=== PATIENT | female | born 1945 | race Caucasian/White ===

== ENCOUNTER 2016-03-12 06:04 | Inpatient (IN) | payer OTHER, MEDICARE ==
[2016-03-12] MEDS ORDERED: NS 500 ML IV ONE (06:15)
[2016-03-12] MEDS ORDERED: NS 1,000 ML IV ONE ×2 (06:23→06:25)
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
--- NOTE | 2016-03-12 06:26 | CPEKG ---
Heart Rate: 98 RR Interval: 612 P-R Interval: 184 QRSD Interval: 96 QT Interval: 380 QTC Interval: 486 P [employer]: -74 QRS [employer]: -20 T Wave [employer]: 19 EKG Severity - ABNORMAL ECG - EKG Impression: Poor R-wave progression EKG Impression: SINUS OR ECTOPIC ATRIAL RHYTHM EKG Impression: BORDERLINE LEFT AXIS DEVIATION EKG Impression: BORDERLINE PROLONGED QT INTERVAL Electronically Signed By: Magalys Rojas 13-Mar-2016 14:12:01
[2016-03-12] MEDS ORDERED: PIPERACILLIN/TAZO 4.5 GM/DEX 100 ML IV ONE (06:31)
[2016-03-12] MEDS ORDERED: VANCOMYCIN HCL/NORMAL SALINE 250 ML IV ONE (06:31)
[2016-03-12 06:35] LABS: % IMMATURE GRANULYOCYTES 1.2 % (0.0-1.1); ABSOLUTE IMMATURE GRANULOCYTES 0.21 10^3/uL (0.00-0.10); ADD DIFF? NO; ADD MORPH? NO; ADD SCAN? YES; ATYPICAL LYMPHOCYTE FLAG 0 (0-99); FRAGMENT RBC FLAG 0 (0-99); HEMATOCRIT 33.6 % (38.0-47.0); HEMOGLOBIN 10.2 g/dL (12.6-16.3); LIPEMIA HEMOLYSIS FLAG 80 (0-99); MEAN CELL HEMOGLOBIN 25.4 pg (27.9-34.1); MEAN CELL HEMOGLOBIN CONCENTR. 30.4 g/dL (32.4-36.7); MEAN CELL VOLUME 83.8 fL (81.5-99.8); MEAN PLATELET VOLUME 9.9 fL (8.7-11.7); PLATELET CLUMPS FLAG 10 (0-99); PLATELET COUNT 197 10^3/uL (150-400); RED BLOOD CELL COUNT 4.01 10^6/uL (4.18-5.33); RED CELL DISTRIBUTION WIDTH 18.1 % (11.5-15.2)
[2016-03-12 06:42] LABS: LEFT SHIFT FLG 250 (0-99)
[2016-03-12 06:55] LABS: APTT 37.7 SEC (23.0-38.0); INR 1.68 (0.83-1.16); PROTIME(PATIENT) 19.8 SEC (12.0-15.0)
[2016-03-12] MEDS ORDERED: ACETAMINOPHEN 500 MG TAB ONE (06:56)
[2016-03-12] MEDS ORDERED: ACETAMINOPHEN 500 MG TAB PO ONE (07:00)
[2016-03-12 07:02] LABS: ALANINE AMINOTRANSFERASE 41 IU/L (9-52); ALBUMIN 3.6 g/dL (3.5-5.0); ALKALINE PHOSPHATASE 207 IU/L (38-126); ANION GAP 14 mEq/L (8-16); ASPARTATE AMINOTRANSFERASE 36 IU/L (14-46); BILIRUBIN,TOTAL 1.3 mg/dL (0.1-1.4); BILIRUBIN-CONJUGATED 0.4 mg/dL (0.0-0.5); BILIRUBIN-UNCONJUGATED 0.9 mg/dL (0.0-1.1); CALCIUM 9.5 mg/dL (8.5-10.4); CARBON DIOXIDE 25 mEq/l (22-31); CHLORIDE 101 mEq/L (97-110); CREATININE 0.9 mg/dL (0.6-1.0); GLOMERULAR FILTRATION RATE > 60; GLUCOSE 101 mg/dL (70-100); MAGNESIUM 1.7 mg/dL (1.6-2.3); POTASSIUM 3.9 mEq/L (3.5-5.2); SODIUM 140 mEq/L (134-144); TOTAL PROTEIN 8.9 g/dL (6.3-8.2)
[2016-03-12] MEDS ORDERED: ONDANSETRON 4 MG/2 ML VIAL IVP PRN (07:10)
[2016-03-12] MEDS ORDERED: ONDANSETRON DISINTEGRATING 4 MG TAB PO PRN (07:10)
[2016-03-12 07:13] LABS: CREATINE KINASE-MB FRACTION 1.15 ng/mL (0-3.19); TROPONIN I < 0.012 ng/mL (0-0.034)
[2016-03-12 07:15] LABS: SCAN POSITIVE
[2016-03-12] MEDS ORDERED: hydrOXYzine HCL 25 MG TAB PO PRN (07:16)
--- NOTE | 2016-03-12 07:17 | DX ---
Left Humerus, 2 Views Clinical Indications: Severe pain Findings: There is faint soft tissue calcification lateral to the acromium, just above the humeral he ad, consistent with calcific tendinopathy. No fracture, dislocation, erosion, bone lysis or sclerosis or periosteal reaction. Impression: Calcific tendinopathy vs calcified subdeltoid bursitis of the rotator cuff.
--- NOTE | 2016-03-12 07:20 | DX ---
Portable Chest, 6:39 a.m. Clinical Indications: Left-sided chest pain, severe Comparison: February 15, 2016 Findings: There is chronic elevation of the right hemidiaphragm. It is difficult to mapping engineer heart size however the pulmonary vascularity is again plethoric. The costophrenic gutters remain sharp. There i s no focal consolidation. There is no left pneumothorax or obvious rib abnormality. A severe thoracic lumbar scoliosis and upper abdominal surgical clips remain. Impression: Little if any change x 1 month. Is the right hemidiaphragm paralyzed?
[2016-03-12 07:23] LABS: HYPOCHROMIA 1+; PLATELET ESTIMATE ADEQUATE (ADEQ); TOXIC VACUOLIZATION PRESENT
[2016-03-12] MEDS ORDERED: KETOROLAC 15 MG/1 ML SDV IVP ONE (07:56)
[2016-03-12] MEDS ORDERED: KETOROLAC 15 MG/1 ML SDV ONE (08:02)
[2016-03-12 08:05] LABS: COLOR AMBER; LEUKOCYTE ESTERASE,URINE TRACE (NEGATIVE); NITRITE,URINE NEGATIVE (NEGATIVE)
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
[2016-03-12 08:22] LABS: MUCUS TRACE /lpf (NONE-1+)
[2016-03-12] MEDS: IBUPROFEN 600 MG TAB PO PRN (09:42)
[2016-03-12] MEDS ORDERED: hydrOXYzine HCL 10 MG TAB PO PRN (10:25)
[2016-03-12] MEDS: ENOXAPARIN 40 MG/0.4 ML SYR SC SCH (11:31)
[2016-03-12] MEDS: PIPERACILLIN/TAZO 2.25 GM/DEX 50 ML IV SCH ×3 (12:00→23:51)
--- NOTE | 2016-03-12 16:40 | HOSPPROG ---
Hospitalist Progress Note Assessment/Plan: This 70-year-old female with history of T12 paraplegia and recent group a strep bacteremia new to my care today presenting with # sepsis # improving left upper arm pain # bilateral lower extremity wound infections # depression # hypotension # history of neurogenic bladder # suspected neurogenic excoriation plan: - Continue empiric vancomycin and Zosyn - will continue to monitor left upper extremity pain and consider MRI if pain is worsening or if we think it could be a source of infection - follow up blood cultures - will increase Vistaril to 25 mg four times daily - continue wound care Subjective: left arm pain is improving. no other new complaints Objective: Vital Signs Temp Pulse Resp BP Pulse Ox 36.7 C 101 H 21 H 107/47 L 97 03/12/16 12:00 03/12/16 15:57 03/12/16 15:57 03/12/16 15:57 03/12/16 15:57 Laboratory Results 03/12/16 Unknown 03/12/16 Unknown 03/11/16 03/12/16 03/13/16 05:59 05:59 05:59 Intake Total 2470 Output Total 260 Balance 2210 PT 19.8 SEC (12.0-15.0) H 03/12/16 Unknown INR 1.68 (0.83-1.16) H 03/12/16 Unknown - Physical Exam Constitutional: no apparent distress, appears nourished, not in pain Ears, Nose, Mouth, Throat: moist mucous membranes, hearing normal, ears appear normal, no oral mucosal ulcers Cardiovascular: regular rate and rhythym, no murmur, rub, or gallop Skin: other ( excoriations on face) ICD10 Worksheet Patient Problems: Problems Problem Status Diagnosed Bacteremia Acute Hypoxia Acute Sepsis Acute Sepsis affecting skin Acute Urinary tract infection Acute Wound infection Acute Wounds and injuries Acute Bilateral leg ulcer Acute
[2016-03-12] MEDS: ACETAMINOPHEN 325 MG TAB PO PRN ×2 (17:17→21:15)
[2016-03-12] MEDS: KETOROLAC 15 MG/1 ML SDV IVP PRN (19:35)
[2016-03-12] MEDS: VANCOMYCIN HCL/NORMAL SALINE 250 ML IV SCH (20:41)
[2016-03-12] MEDS: hydrOXYzine HCL 25 MG TAB PO PRN ×2 (20:41→23:40)
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
[2016-03-13] MEDS: KETOROLAC 15 MG/1 ML SDV IVP PRN ×3 (04:00→19:37)
[2016-03-13] MEDS: hydrOXYzine HCL 25 MG TAB PO PRN ×2 (04:00→15:06)
[2016-03-13 04:25] LABS: HEMATOCRIT 32.7 % (38.0-47.0); HEMOGLOBIN 9.5 g/dL (12.6-16.3); MEAN CELL HEMOGLOBIN 25.1 pg (27.9-34.1); MEAN CELL HEMOGLOBIN CONCENTR. 29.1 g/dL (32.4-36.7); MEAN CELL VOLUME 86.5 fL (81.5-99.8); RED BLOOD CELL COUNT 3.78 10^6/uL (4.18-5.33); RED CELL DISTRIBUTION WIDTH 17.9 % (11.5-15.2)
[2016-03-13 04:35] LABS: ANION GAP 11 mEq/L (8-16); CALCIUM 8.9 mg/dL (8.5-10.4); CARBON DIOXIDE 25 mEq/l (22-31); CHLORIDE 104 mEq/L (97-110); CREATININE 0.9 mg/dL (0.6-1.0); GLOMERULAR FILTRATION RATE > 60; GLUCOSE 88 mg/dL (70-100); POTASSIUM 4.1 mEq/L (3.5-5.2); SODIUM 140 mEq/L (134-144)
[2016-03-13] MEDS: PIPERACILLIN/TAZO 2.25 GM/DEX 50 ML IV SCH (06:27)
[2016-03-13] MEDS: VANCOMYCIN HCL/NORMAL SALINE 250 ML IV SCH ×2 (07:24→19:06)
[2016-03-13] MEDS: ENOXAPARIN 40 MG/0.4 ML SYR SC SCH (09:34)
[2016-03-13] MEDS: FLUoxetine 20 MG CAP PO SCH (09:34)
--- NOTE | 2016-03-13 09:45 | PDINTPN ---
Nut Process Helper Progress Note Assessment/Plan: Assessment: * Cellulitis * Sepsis-resolved * HTN * Paraplegia * Depression * Neurogenic bladder Plan: Continue abx per ID Okay for floor Pain control VTE proph 03/13/16 09:46 Subjective: Awake and alert. C/O neck pain Objective: Vital Signs Temp Pulse Resp BP Pulse Ox 36.7 C 85 20 131/53 H 96 03/13/16 00:00 03/13/16 04:00 03/13/16 04:00 03/13/16 04:00 03/13/16 04:00 Laboratory Results 03/13/16 04:05 03/13/16 04:05 03/12/16 03/13/16 03/14/16 05:59 05:59 05:59 Intake Total 3444 Output Total 660 Balance 2784 PT 19.8 SEC (12.0-15.0) H 03/12/16 Unknown INR 1.68 (0.83-1.16) H 03/12/16 Unknown Physical Exam - Physical Exam General Appearance: alert, mild distress EENT: PERRL/EOMI, normal ENT inspection Neck: non-tender, full range of motion, supple Respiratory: chest non-tender, lungs clear, normal breath sounds Cardiac/Chest: normal peripheral pulses, regular rate, rhythm, systolic murmur Abdomen: normal bowel sounds, non-tender, soft Pelvic Exam: deferred Rectal: deferred Skin: normal color, warm/dry Neuro/Psych: alert ICD10 Worksheet Patient Problems: Problems Problem Status Diagnosed Bacteremia Acute Hypoxia Acute Sepsis Acute Sepsis affecting skin Acute Urinary tract infection Acute Wound infection Acute Wounds and injuries Acute Bilateral leg ulcer Acute
--- NOTE | 2016-03-13 09:46 | PCMIDPN ---
Assessment/Plan: Assessment/Plan: 1. Sepsis seocondary to GPC bacteremia/LLE cellulitis and possible septic left shoulder joint. - Currently on Vanco and Zosyn empirically. Will change zosyn to invanz. - I have ordered f/u blood cx for AM - Recommend TTE to further evaluate given recent recurrence of bacteremia -Recommend further imaging of LUE with Ct with contrast. Discussed with patient. She doesn't want MRI. -Await final ID on blood cx on her blood cx. If deemed again Strep, will d/c vanco. -Care coordinated with intensitivist and hospitalist team. Meds vanco 1g q12- 03/12/16 zosyn 2.25gm q6--- Subjective: Patient well known to ID service. In summary, recently admitted here from 02/14- 02/19/16 with Group A strep bacteremia felt to be due to her Lower extremity wounds. She recieved Ceftriaxone until 02/19/16. Her blood cx were negative on 02/18/16. She had wound vac during her hospital stay. She has been receiving wound care in the outpatient with wet to dry dressings, being changed two times a week by and outside wound care company. She states that yesterday she started to develop acute pain in her LLE from the thigh down to her foot. She noticied it was red and hot. Also new was acute pain in her LUE to the point that she couldn't move her extremity. SHe had fevers, and chills. She has some mild nausea now. Denies diarrhea, abd pain or sob. Rest of ROS essentially negative except what is listed. Objective: Vital Signs Temp Pulse Resp BP Pulse Ox 36.7 C 85 20 131/53 H 96 03/13/16 00:00 03/13/16 04:00 03/13/16 04:00 03/13/16 04:00 03/13/16 04:00 Laboratory Results 03/13/16 04:05 03/13/16 04:05 03/12/16 03/13/16 03/14/16 05:59 05:59 05:59 Intake Total 3444 Output Total 660 Balance 2784 - Physical Exam General Appearance: alert, no apparent distress Respiratory: lungs clear Cardiac/Chest: regular rate, rhythm, systolic murmur Extremities: swelling Abdomen: normal bowel sounds, non-tender, soft, No distended Skin: No erythema (LLE with patchy erythema on thigh and upper leg. skin is warm to touch. bilateral LE wounds. right LE wounds with mild slough, venous stasis dermatitis noted. moderate size involving leg and thigh. Left leg: small wound, minimal lsough, venous stasis dermatitis plus patchy cellulitis.) ICD10 Worksheet Patient Problems: Problems Problem Status Diagnosed Bacteremia Acute Hypoxia Acute Sepsis Acute Sepsis affecting skin Acute Urinary tract infection Acute Wound infection Acute Wounds and injuries Acute Bilateral leg ulcer Acute
[2016-03-13] MEDS: ERTAPENEM 1 GM in NS 100 ML IV SCH (12:48)
--- NOTE | 2016-03-13 13:24 | HOSPPROG ---
Hospitalist Progress Note Assessment/Plan: This 70-year-old female with history of T12 paraplegia and recent group a strep bacteremia new to my care today presenting with # sepsis secondary to LLE cellulitis with b/l LE wound infections - 1/2 BCx's growing GAS, for 2nd time. Per ID, zosyn changed to Ertapenem. Will DC Vanco given strep ID. Repeat BCx's in am. Cont wound care. # left shoulder pain - some concern for septic joint, obtain ext CT today, ortho consult as indicated. # depression # hypotension # history of neurogenic bladder # suspected neurogenic excoriation # DVT pplx - Lovenox # Full code # Dispo - cont inpt Subjective: Pt continues to c/o left shoulder pain. Has had pain since she heard a pop several days ago. No fevers. No cough or SOB. Leg redness is improved. Objective: Vital Signs Temp Pulse Resp BP Pulse Ox 36.6 C 83 20 107/68 95 03/13/16 12:52 03/13/16 12:52 03/13/16 12:52 03/13/16 12:52 03/13/16 12:52 Laboratory Results 03/13/16 04:05 03/13/16 04:05 03/12/16 03/13/16 03/14/16 05:59 05:59 05:59 Intake Total 3444 Output Total 660 Balance 2784 PT 19.8 SEC (12.0-15.0) H 03/12/16 Unknown INR 1.68 (0.83-1.16) H 03/12/16 Unknown - Physical Exam Constitutional: no apparent distress Eyes: PERRL Ears, Nose, Mouth, Throat: moist mucous membranes Cardiovascular: regular rate and rhythym Respiratory: no respiratory distress Gastrointestinal: normoactive bowel sounds, soft, non-tender abdomen Skin: warm (LUE painful with passive ROM of left shoulder, unable to perform active ROM due to pain) Neurologic: AAOx3 Psychiatric: interacting appropriately ICD10 Worksheet Patient Problems: Problems Problem Status Diagnosed Bacteremia Acute Hypoxia Acute Sepsis Acute Sepsis affecting skin Acute Urinary tract infection Acute Wound infection Acute Wounds and injuries Acute Bilateral leg ulcer Acute
[2016-03-13] MEDS: ACETAMINOPHEN 325 MG TAB PO PRN (14:34)
--- NOTE | 2016-03-13 15:35 | ECHO ---
[id number] + + [address] : : [place] [address] : : [phone] + + Adult Echocardiographic Report + + :Name: TANVI TOWNSEND Ricarda Date: 03/13/2016 01:28 PM BP: 117/68 mmHg : : Hospital Admission Number: [id number] : :: 1945 Gender: Female Height: 66 in : :Age: 70 yrs Race: WH Weight: 225 lb : :Reason For Study: Bilateral leg swelling; r/o vegetations : : BSA: 2.1 meters2: :History: recurrent bacteremia, murmur : + + MMode/2D Measurements & Calculations IVSd: 1.5 cm LVIDd: 4.0 cm FS: 36.9 % Ao root diam: 2.5 cm LVPWd: 0.86 cm LVIDs: 2.5 cm EDV(Teich): 71.8 ml LA dimension: 4.2 cm ESV(Teich): 23.4 ml EF(Teich): 67.3 % LVOT diam: 2.0 cm LVOT area: 3.1 cm2 Normal Measurement Values: + + :LVIDd (3.5-5.7cm) IVSd (0.6-1.1cm) LVPWd (0.6-1.1cm) Aortic Root (2.0-3.7cm)Left Atrium (1.5-4.0cm): :LV Vol(d) (76-115ml) LV Vol(s) (29-48ml) Ejec Fraction (50-65%)PV Sagar (0.6- 1.2m/s) TV Sagar (0.4-1.0m/s) : :MV E Sagar (0.8-1.0m/s)MV A Sagar (0.3-1.0m/s)LVOT Sagar (0.7-1.2m/s) Asc Ao Sagar ( 0.9-1.8m/s) : + + Doppler Measurements & Calculations MV E max sagar: Ao V2 max: LV V1 max: SV(LVOT): 106.1 cm/sec 230.8 cm/sec 154.6 cm/sec 66.6 ml MV A max sagar: Ao max P.3 mmHgLV V1 max P.8 cm/sec Ao mean P.6 mmHg MV E/A: 1.1 10.4 mmHg LV V1 mean PG: MV dec time: 0.22 sec Ao V2 mean: 3.2 mmHg 147.9 cm/sec LV V1 mean: Ao V2 VTI: 47.4 cm 79.3 cm/sec LV V1 VTI: 21.2 cm ABIODUN(I,D): 1.4 cm2 ABIODUN(V,D): 2.1 cm2 PA V2 max: TR max sagar: 169.2 cm/sec 294.5 cm/sec PA max P.6 mmHg TR max P.7 mmHg RAP systole: 5.0 mmHg RVSP(TR): 39.7 mmHg Left Ventricle The left ventricle is normal in size and function. Proximal septal thickening is noted. Echo findings are not consistent with left ventricular outflow obstruction. Ejection Fraction = 65-70%. No regional wall motion abnormalities noted. Right Ventricle The right ventricle is normal in size and function. Atria The Left Atrial Volume is 35 ml/m2. The left atrium is mildly dilated. Right atrial size is normal. The interatrial septum is intact with no evidence for an atrial septal defect. Mitral Valve The mitral valve leaflets appear thickened, but open well. Moderate focal calcification of the posterior mitral valve leaflet and posterior annulus. There is no mitral valve stenosis. There is trace mitral regurgitation. Tricuspid Valve The tricuspid valve is normal in structure and function. There is mild tricuspid regurgitation. Right ventricular systolic pressure is 40mmHg. There is Doppler evidence for mild pulmonary hypertension. Aortic Valve The aortic valve is trileaflet. There is mild aortic valve calcification. Mildly elevated aortic valve velcocities. There is no aortic insufficiency. Pulmonic Valve The pulmonic valve is not well visualized. Great Vessels The aortic root is normal size. Normal Ascending Aorta 3.4 cm. Pericardium/Pleural There is no pericardial effusion. There is no pleural effusion. Conclusion A two-dimensional transthoracic echocardiogram with M-mode and Doppler was performed. Technically difficult apical window due to patient unable to roll onto left side. The left ventricle is normal in size and function. Ejection Fraction = 65-70%. The left atrium is mildly dilated. The Left Atrial Volume is 35 ml/m2. There is mild tricuspid regurgitation. Right ventricular systolic pressure is 40mmHg. There is Doppler evidence for mild pulmonary hypertension. Mildly elevated aortic valve velcocities. Moderate focal calcification of the posterior mitral valve leaflet and posterior annulus. There is trace mitral regurgitation. There is no pleural effusion. Final Reading Physician: Elmer Dickerson electronically signed on 03/13/2016 03:34 PM Ordering Physician: Suha Graff Performed By: Geneva Reyes
--- NOTE | 2016-03-13 18:28 | CT ---
CT left upper extremity 1732 hours. History: Acute left upper extremity pain and limited range of motion. Bacteremia. Possible joint effu gladis. Technique: Spiral imaging was obtained through the left upper arm with the administration of 90 mL Is ovue-300 IV contrast. Images were reconstructed down to 1 mm slice thickness and reviewed in multiple planes. Dose reduction techniques were utilized. Findings: There is a moderate effusion projected anterior to the left humeral head measuring about 4. 8 x 1.6 cm in transverse and AP dimensions. There is also a moderate effusion that bulges on each orlando e of the left AC joint causing compression upon the underlying rotator cuff. There is no evidence of erosion about the AC joint or erosion of the humeral head. The glenoid portion of the scapula is also intact. There is atrophy of the supraspinatus muscle suspicious for chronic rotator cuff tear. The s ubscapularis and teres minor appear to be intact. There is normal enhancement of the vasculature. The re are some collateral vessels in the soft tissues of the mid to lower chest posterior laterally. Impression: 1. Moderate shoulder joint effusion anterior to the left humeral head as well as moderate effusion as sociated with the left AC joint extending superior and inferior to the joint space. Rule out underlyi ng infectious or inflammatory process. There is no evidence of associated bony erosion. 2. Incidental collateral vessels in the soft tissues mid to lower chest subcutaneous region posterior laterally. There may be underlying central venous obstruction.
[2016-03-14] MEDS: hydrOXYzine HCL 25 MG TAB PO PRN ×4 (00:31→20:28)
[2016-03-14] MEDS: KETOROLAC 15 MG/1 ML SDV IVP PRN ×2 (02:29→17:23)
[2016-03-14] MEDS: ACETAMINOPHEN 325 MG TAB PO PRN ×2 (02:44→17:21)
[2016-03-14 05:56] LABS: % IMMATURE GRANULYOCYTES 0.9 % (0.0-1.1); ABSOLUTE IMMATURE GRANULOCYTES 0.07 10^3/uL (0.00-0.10); ADD DIFF? NO; ADD MORPH? NO; ADD SCAN? YES; ATYPICAL LYMPHOCYTE FLAG 0 (0-99); FRAGMENT RBC FLAG 0 (0-99); HEMATOCRIT 29.4 % (38.0-47.0); HEMOGLOBIN 8.6 g/dL (12.6-16.3); LIPEMIA HEMOLYSIS FLAG 70 (0-99); MEAN CELL HEMOGLOBIN 25.1 pg (27.9-34.1); MEAN CELL HEMOGLOBIN CONCENTR. 29.3 g/dL (32.4-36.7); MEAN CELL VOLUME 85.7 fL (81.5-99.8); MEAN PLATELET VOLUME 10.3 fL (8.7-11.7); PLATELET CLUMPS FLAG 0 (0-99); PLATELET COUNT 156 10^3/uL (150-400); RED BLOOD CELL COUNT 3.43 10^6/uL (4.18-5.33); RED CELL DISTRIBUTION WIDTH 17.8 % (11.5-15.2)
[2016-03-14 06:05] LABS: LEFT SHIFT FLG 300 (0-99)
[2016-03-14 06:18] LABS: ANION GAP 8 mEq/L (8-16); CALCIUM 9.2 mg/dL (8.5-10.4); CARBON DIOXIDE 27 mEq/l (22-31); CHLORIDE 106 mEq/L (97-110); CREATININE 0.8 mg/dL (0.6-1.0); GLOMERULAR FILTRATION RATE > 60; GLUCOSE 89 mg/dL (70-100); POTASSIUM 4.4 mEq/L (3.5-5.2); SODIUM 141 mEq/L (134-144)
[2016-03-14 07:32] LABS: SCAN NEGATIVE
[2016-03-14] MEDS: ERTAPENEM 1 GM in NS 100 ML IV SCH (08:38)
--- NOTE | 2016-03-14 08:39 | HOSPPROG ---
Hospitalist Progress Note Assessment/Plan: This 70-year-old female with history of T12 paraplegia and recent group a strep bacteremia new to my care today presenting with # sepsis secondary to LLE cellulitis with b/l LE wound infections - 1/2 BCx's growing GAS, for 2nd time. Per ID, zosyn changed to Ertapenem. Will DC Vanco given strep ID. Repeat BCx's today per ID. Cont wound care. # possible septic left shoulder joint - CT showed moderate effusion. Discussed with ortho, Dr. Sow. To IR for u/s aspiration, fluid for cell count, Cx/GS and crystals. Pt made NPO, if cell count positive, may need washout in OR. She has not eaten yet this am. # depression # hypotension # history of neurogenic bladder # suspected neurogenic excoriation # DVT pplx - Lovenox # Full code # Dispo - cont inpt Subjective: Continues to have shoulder pain. No fevers. No Cp or SOB. Feels redness in LLE decreased, less pain. Objective: Vital Signs Temp Pulse Resp BP Pulse Ox 36.5 C 76 16 116/58 L 94 03/14/16 07:41 03/14/16 07:41 03/14/16 07:41 03/14/16 07:41 03/14/16 07:41 Laboratory Results 03/14/16 05:09 03/14/16 05:09 03/13/16 03/14/16 03/15/16 05:59 05:59 05:59 Intake Total 3444 850 Output Total 660 400 Balance 2784 450 PT 19.8 SEC (12.0-15.0) H 03/12/16 Unknown INR 1.68 (0.83-1.16) H 03/12/16 Unknown - Physical Exam Constitutional: no apparent distress Eyes: PERRL Ears, Nose, Mouth, Throat: moist mucous membranes Cardiovascular: regular rate and rhythym Respiratory: no respiratory distress Gastrointestinal: normoactive bowel sounds, soft, non-tender abdomen Skin: warm Musculoskeletal: other (LLE cellulitis persists posteriorly, though receding, still 1+ edema) Neurologic: AAOx3 Psychiatric: interacting appropriately ICD10 Worksheet Patient Problems: Problems Problem Status Diagnosed Bacteremia Acute Hypoxia Acute Sepsis Acute Sepsis affecting skin Acute Urinary tract infection Acute Wound infection Acute Wounds and injuries Acute Bilateral leg ulcer Acute
[2016-03-14] MEDS ORDERED: NA BICARBONATE 50 MEQ/50 ML VIAL ONE (08:41)
[2016-03-14] MEDS ORDERED: LIDOCAINE 1% 30 ML SDV ONE (08:42)
--- NOTE | 2016-03-14 10:27 | US ---
Ultrasound-Guided Aspiration Left Shoulder History: Fluid collection anterior to the left humeral head on CT imaging. Painful left shoulder. Rul e out infection. Crosscutting Measure #226: Current tobacco user: no. Informed consent was obtained. The possibility of infection and bleeding. Technique: A dominant pocket of fluid was localized ultrasound over the anterior left shoulder. A sm all amount of fluid is also seen in the left AC joint. The skin was then prepped and draped in steril e fashion. Local and deep anesthesia was applied with 1% lidocaine. An 18-gauge needle was advanced w ith ultrasound guidance into the dominant fluid collection anterior to the left humeral head. 15 mL o f yellowish thick purulent type fluid was aspirated. There is a residual pocket along the inferior ma rgin after the first aspiration. An additional 18-gauge spinal needle was advanced into the residual smaller pocket inferiorly an an additional 4 mL was aspirated of similar type fluid. The fluid was se nt to the laboratory for Gram stain along with culture and sensitivity. Impression: Successful 19 mL left anterior shoulder aspiration with ultrasound guidance.
[2016-03-14] MEDS ORDERED: LACTULOSE 20 GM/30 ML UDCUP PO PRN (11:16)
[2016-03-14] MEDS ORDERED: MAGNESIUM HYDROXIDE 30 ML UDCUP PO PRN (11:16)
[2016-03-14] MEDS ORDERED: POLYETHYLENE GLYCOL 3350 17 GM PKT PO PRN (11:16)
[2016-03-14] MEDS ORDERED: BISACODYL 10 MG SUPP PR PRN (11:16)
[2016-03-14 11:23] LABS: WBC, SYNOVIAL FLUID 73518 /mm3 (0-150)
[2016-03-14] MEDS: ENOXAPARIN 40 MG/0.4 ML SYR SC SCH (11:37)
[2016-03-14] MEDS ORDERED: ROPIVACAINE HCL 20 MG/10 ML INJ EP ONE ×3 (12:07→14:58)
[2016-03-14] MEDS ORDERED: BACITRACIN 50,000 UNITS/10 ML SYR IRR ONE ×2 (12:08→12:10)
[2016-03-14] MEDS ORDERED: POLYMYXIN B SULFATE 500,000 UNIT/10 ML SYR IRR ONE ×2 (12:08→12:10)
--- NOTE | 2016-03-14 13:28 | WOCRNPDOC ---
JACOB Advanced Assessment Note - Skin Integrity Problem, Advanced Assess Right Upper Distal Leg Dressing Type: Open to Air Exudate Amount: Scant Exudate Color: Red Exudate Characteristic(s): Bloody Integumentary Issue Intervention: Dressing Applied Annamaria Wound Tissue: Erythema, Dry, Scarred Annamaria Wound Swelling: Mild Wound Bed Color: [place], Red Wound Bed Constitution: Granulation Tissue, Smooth Tissue (70%) Wound Edges: Epithelizing Site Odor: Slight Site Measurement - Head-to-Toe Length X Width X Depth (cm): 24jnc0pxh4.3cm Skin Integrity Problem Comment: This patient is well-known to wound care, w/ an extensive history of self-inflicted wounds to her bilateral lower extremities. Wound vac dressings were placed on all her LE wounds during her previous hospitalization. She was then discharged to an LTAC, and then home. Her wound vac treatment continued until her most recent hospitalization. She denies any recent picking of wounds. Wound on distal R upper leg is mixed smooth and granulating tissues w/ no apparent necrosis. Mild erythema noted to immediate annamaria-wound tissue, w/ no accompanying swelling or increased pain. Patient is unable to tolerate any adhesives or gauze on her skin. Dressing of moistened ABD , covered by dry ABD, applied and secured w/ Angel Luis. Wound care will evaluate wounds tomorrow for possible vac placement. Right Lower Distal Leg Dressing Type: Open to Air Exudate Amount: Scant Exudate Color: Red Exudate Characteristic(s): Bloody Integumentary Issue Intervention: Dressing Applied Annamaria Wound Tissue: Erythema, Swollen (mild, not distinct), Dry Annamaria Wound Swelling: Mild Wound Bed Color: [place], Red Wound Bed Constitution: Granulation Tissue (60%), Smooth Tissue (40%) Wound Edges: Epithelizing Site Odor: Slight Site Measurement - Head-to-Toe Length X Width X Depth (cm): 66zbf4fie4.3cm Skin Integrity Problem Comment: Wound w/ mix of smooth and granulating tissues, epithelialization along margins. No necrosis noted. Slight erythema immediately annamaria-wound, w/ no accompanying swelling, warmth, or pain. Left Lower Proximal Leg Dressing Type: Open to Air Exudate Amount: None Exudate Characteristic(s): None Integumentary Issue Intervention: Dressing Applied Annamaria Wound Tissue: Erythema, Swollen, Dry, Scarred Annamaria Wound Swelling: Moderate Wound Bed Color: Red, Yellow Wound Bed Constitution: Granulation Tissue (10%), Smooth Tissue (70%), Adhered Slough (20%) Wound Edges: Epithelizing, Epibole (at distal aspect) Site Odor: Slight Site Measurement - Head-to-Toe Length X Width X Depth (cm): 72ohy9txg1.3cm Skin Integrity Problem Comment: Wound bed has some granulation along margins, but is predominantly smooth tissue w/ some adhered slough in the more distal aspect. Epithelializing margins proximally, and epibole noted distally. Erythema noted to annamaria-wound tissue, not distinct enough to nick. L extremity also has increased swelling annamaria-wound when compared to R. Left Lower Distal Leg Dressing Type: Open to Air Exudate Amount: None Exudate Characteristic(s): None Integumentary Issue Intervention: Dressing Applied Annamaria Wound Tissue: Erythema, Swollen, Scarred Annamaria Wound Swelling: Mild Wound Bed Color: Red, Yellow Wound Bed Constitution: Smooth Tissue (50%), Adhered Slough (50%) Site Odor: Slight Site Measurement - Head-to-Toe Length X Width X Depth (cm): 9cmx2.1cmx0.3cm Skin Integrity Problem Comment: 50/50 slough/ smooth tissue mix in this wound, w / epithelialization along margins and epibole on more proximal aspect of margins. Annamaria-wound tissue slightly swollen w/ mild erythema. Patient c/o more pain in this extremity than in the R.
[2016-03-14] MEDS ORDERED: MIDAZOLAM 2 MG/2 ML VIAL ONE (14:05)
[2016-03-14] MEDS ORDERED: fentaNYL 100 MCG/2 ML INJ ONE ×3 (14:06→15:51)
[2016-03-14] MEDS ORDERED: LIDOCAINE 2% 100 MG/5 ML SYR IVP ONE (14:06)
[2016-03-14] MEDS ORDERED: DEXAMETHASONE 4 MG/ML VIAL ONE (14:06)
[2016-03-14] MEDS ORDERED: ONDANSETRON 4 MG/2 ML VIAL ONE (14:06)
[2016-03-14] MEDS ORDERED: PROPOFOL 200 MG/20 ML VIAL ONE (14:06)
[2016-03-14] MEDS ORDERED: PHENYLEPHRINE HCL 100 MCG/ML SYR ONE (14:31)
--- NOTE | 2016-03-14 15:38 | PCMIDPN ---
Assessment/Plan: Assessment/Plan: 1. Sepsis secondary to Group A strep bacteremia/LLE cellulitis and septic left shoulder joint. - Currently on invanz---will change to Ceftriaxone. - f/u blood cx 03/14/16 pending - TTE: no obvious vegetations noted but thickened MV. Will review with cardiology - 2. Left shoulder septic joint: - initial aspirate with 73,000 wbc. no org on gs. cx pending - for wash out at present. - care coordinated with hosptialist earlier this morning to get jt aspirated and for ortho involvement. Meds invanz s/p vanco 1g q12- 03/12/16 zosyn 2.25gm q6--- Subjective: afebrile. pt off floor for washout of left shoulder joint effusion. Objective: Vital Signs Temp Pulse Resp BP Pulse Ox 36.5 C 76 16 116/58 L 94 03/14/16 07:41 03/14/16 07:41 03/14/16 07:41 03/14/16 07:41 03/14/16 07:41 Microbiology 03/12/16 08:19 Urine Culture - Final Urine,Clean Catch Five Or More [place] Types 03/14/16 09:50 Gram Stain - Final Shoulder - Aspirate Laboratory Results 03/14/16 05:09 03/14/16 05:09 03/13/16 03/14/16 03/15/16 05:59 05:59 05:59 Intake Total 3446 850 Output Total 660 400 251 Balance 2784 450 -251 ICD10 Worksheet Patient Problems: Problems Problem Status Diagnosed Bacteremia Acute Hypoxia Acute Sepsis Acute Sepsis affecting skin Acute Urinary tract infection Acute Wound infection Acute Wounds and injuries Acute Bilateral leg ulcer Acute
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
[2016-03-14] MEDS: FLUoxetine 20 MG CAP PO SCH (16:53)
[2016-03-14] MEDS: fentaNYL 100 MCG/2 ML INJ IVP PRN ×3 (17:01→19:35)
[2016-03-14 18:01] LABS: WBC, SYNOVIAL FLUID 188932 /mm3 (0-150)
[2016-03-14] MEDS: SENNOSIDES/DOCUSATE SODIUM TAB PO SCH (20:28)
[2016-03-15] MEDS: hydrOXYzine HCL 25 MG TAB PO PRN ×5 (04:41→22:10)
[2016-03-15] MEDS: fentaNYL 100 MCG/2 ML INJ IVP PRN ×2 (04:42→22:01)
[2016-03-15 05:59] LABS: % IMMATURE GRANULYOCYTES 0.7 % (0.0-1.1); ABSOLUTE IMMATURE GRANULOCYTES 0.05 10^3/uL (0.00-0.10); ADD DIFF? NO; ADD MORPH? NO; ADD SCAN? YES; ATYPICAL LYMPHOCYTE FLAG 20 (0-99); FRAGMENT RBC FLAG 0 (0-99); HEMATOCRIT 27.6 % (38.0-47.0); HEMOGLOBIN 8.1 g/dL (12.6-16.3); LIPEMIA HEMOLYSIS FLAG 70 (0-99); MEAN CELL HEMOGLOBIN 25.3 pg (27.9-34.1); MEAN CELL HEMOGLOBIN CONCENTR. 29.3 g/dL (32.4-36.7); MEAN CELL VOLUME 86.3 fL (81.5-99.8); MEAN PLATELET VOLUME 10.2 fL (8.7-11.7); PLATELET CLUMPS FLAG 10 (0-99); PLATELET COUNT 177 10^3/uL (150-400); RED CELL DISTRIBUTION WIDTH 17.6 % (11.5-15.2)
[2016-03-15 06:03] LABS: LEFT SHIFT FLG 200 (0-99)
[2016-03-15 07:13] LABS: SCAN NEGATIVE
--- NOTE | 2016-03-15 08:34 | HOSPPROG ---
Hospitalist Progress Note Assessment/Plan: This 70-year-old female with history of T12 paraplegia and recent group a strep bacteremia new to my care today presenting with # sepsis secondary to LLE cellulitis with b/l LE wound infections and septic joint - 1/2 BCx's growing GAS, for 2nd time. Rpt BCx's NGTD. Per ID, atbx tailored to Ceftriaxone. Cont wound care. If BCx's remain neg, likely place PICC tomorrow. DOT per ID, sounds like 4 weeks planned. # septic left shoulder joint - S/P washout in OR by Dr. Sow. GPC's on gram stain. Cx pending. # depression # hypotension # history of neurogenic bladder # suspected neurogenic excoriation # DVT pplx - Lovenox # Full code # Dispo - cont inpt Subjective: PT feels better today, pain controlled. She has a lot of opioid allergies, but has tolerated fentanyl for post-op pain. No fevers. Appetite fair. Objective: Vital Signs Temp Pulse Resp BP Pulse Ox 36.7 C 74 16 122/60 H 99 03/15/16 07:19 03/15/16 07:19 03/15/16 07:19 03/15/16 07:19 03/15/16 07:19 Microbiology 03/14/16 14:45 Gram Stain - Final Shoulder - Aspirate 03/12/16 08:19 Urine Culture - Final Urine,Clean Catch Five Or More Lyndon Types 03/14/16 09:50 Gram Stain - Final Shoulder - Aspirate Laboratory Results 03/15/16 05:15 03/14/16 05:09 03/14/16 03/15/16 03/16/16 05:59 05:59 05:59 Intake Total 850 1000 Output Total 400 361 Balance 450 639 PT 19.8 SEC (12.0-15.0) H 03/12/16 Unknown INR 1.68 (0.83-1.16) H 03/12/16 Unknown - Physical Exam Constitutional: no apparent distress Eyes: PERRL Ears, Nose, Mouth, Throat: moist mucous membranes Cardiovascular: regular rate and rhythym Respiratory: no respiratory distress, clear to auscultation Gastrointestinal: normoactive bowel sounds, soft, non-tender abdomen Skin: warm Musculoskeletal: other (Left shoulder dressing c/d/i. LLE erythema receding) Neurologic: AAOx3 Psychiatric: interacting appropriately ICD10 Worksheet Patient Problems: Problems Problem Status Diagnosed Bacteremia Acute Hypoxia Acute Sepsis Acute Sepsis affecting skin Acute Urinary tract infection Acute Wound infection Acute Wounds and injuries Acute Bilateral leg ulcer Acute
[2016-03-15] MEDS: cefTRIAXone 2 GM in D5W 50 ML IV SCH (09:31)
[2016-03-15] MEDS: FLUoxetine 20 MG CAP PO SCH (09:32)
[2016-03-15] MEDS: ENOXAPARIN 40 MG/0.4 ML SYR SC SCH (09:32)
[2016-03-15] MEDS: SENNOSIDES/DOCUSATE SODIUM TAB PO SCH ×3 (09:32→19:24)
--- NOTE | 2016-03-15 10:15 | PCMIDPN ---
Assessment/Plan: Assessment/Plan: * Recurrent group A strep bacteremia and left shoulder septic bursitis/possible arthritis status post incision and drainage: Clinically improved post incision and drainage. 1+ GPC on Gram stain and purulent material intraoperatively. Operative findings reviewed with Dr. Sow. Suspect all will be due to group A Streptococcus. Unclear if seeded previously with bacteremia or if this represents recurrent bacteremia with skin and soft tissue infection and subsequent seeding of shoulder. Will plan 4 weeks of antibiotic therapy post clearance of blood cultures. Continue ceftriaxone. PICC line tomorrow if blood cultures remain negative. 03/15/16 10:11 Subjective: Post incision and drainage of shoulder. History and clinical findings reviewed. Objective: Vital Signs Temp Pulse Resp BP Pulse Ox 36.7 C 74 16 122/60 H 99 03/15/16 07:19 03/15/16 07:19 03/15/16 07:19 03/15/16 07:19 03/15/16 07:19 Microbiology 03/14/16 14:45 Gram Stain - Final Shoulder - Aspirate 03/12/16 08:19 Urine Culture - Final Urine,Clean Catch Five Or More [place] Types 03/14/16 09:50 Gram Stain - Final Shoulder - Aspirate Laboratory Results 03/15/16 05:15 03/14/16 05:09 03/14/16 03/15/16 03/16/16 05:59 05:59 05:59 Intake Total 850 1000 437 Output Total 400 361 Balance 450 639 437 Ceftriaxone # 1 (antibiotics # 3) Blood cultures 03/14/2016 no growth to date Operative shoulder specimen with 1+ GPC Shoulder aspirate with no growth to date - Physical Exam General Appearance: alert, no apparent distress EENT: pharynx normal, No conjunctival petechiae Respiratory: lungs clear, No respiratory distress Cardiac/Chest: regular rate, rhythm, systolic murmur (2/6 left upper sternal border) Extremities: inflammation (Left shoulder dressed postoperatively; No active skin and soft tissue infection over either lower extremity) Abdomen: non-tender, No distended Skin: other (Chronic wounds over lower extremities without signs of active infection) ICD10 Worksheet Patient Problems: Problems Problem Status Diagnosed Bacteremia Acute Hypoxia Acute Sepsis Acute Sepsis affecting skin Acute Urinary tract infection Acute Wound infection Acute Wounds and injuries Acute Bilateral leg ulcer Acute
[2016-03-15] MEDS: ACETAMINOPHEN 325 MG TAB PO PRN ×2 (11:46→19:23)
[2016-03-15] MEDS: IBUPROFEN 600 MG TAB PO PRN ×2 (14:01→20:28)
[2016-03-15] MEDS: traMADol 50 MG TAB PO PRN (14:33)
[2016-03-15] MEDS: FERROUS SULFATE 325 MG TAB PO SCH (16:08)
[2016-03-16] MEDS: hydrOXYzine HCL 25 MG TAB PO PRN ×3 (02:48→20:53)
[2016-03-16] MEDS: ACETAMINOPHEN 325 MG TAB PO PRN ×3 (02:48→15:28)
[2016-03-16 05:44] LABS: HEMATOCRIT 28.7 % (38.0-47.0); HEMOGLOBIN 8.3 g/dL (12.6-16.3)
[2016-03-16] MEDS ORDERED: ALTEPLASE 2 MG VIAL IVP PRN (08:19)
[2016-03-16] MEDS: cefTRIAXone 2 GM in D5W 50 ML IV SCH (09:06)
[2016-03-16] MEDS: SENNOSIDES/DOCUSATE SODIUM TAB PO SCH ×2 (09:08→20:13)
[2016-03-16] MEDS: FLUoxetine 20 MG CAP PO SCH (09:08)
[2016-03-16] MEDS: FERROUS SULFATE 325 MG TAB PO SCH (09:08)
--- NOTE | 2016-03-16 11:35 | PCMIDPN ---
Assessment/Plan: Assessment/Plan: 1. Sepsis secondary to Group A strep bacteremia/LLE cellulitis and left shoulder septic bursitis/arthritis - Currently on Ceftriaxone. - f/u blood cx 03/14/16 ngtd - TTE: no obvious vegetations noted - s/p extensive synovectomy and bursectomy. -Intra-op specimens: GS with gpc, cultures ngtd - s/p picc line. - plan as outlined in Dr. Mcgovern's note Meds Ceftriaxone 2g daily- 03/15/16 s/p vanco 1g q12- 03/12/16 zosyn 2.25gm q6--- invanz 03/13-03/14 Subjective: Afebrile. less pain involving the shoulder. denies sob, abd pain or diarrhea. Objective: Vital Signs Temp Pulse Resp BP Pulse Ox 36.5 C 101 H 18 122/70 H 94 03/16/16 07:42 03/16/16 11:23 03/16/16 11:23 03/16/16 11:23 03/16/16 11:23 Microbiology 03/14/16 14:45 Mycobacterial Smear (BOB) - Final Shoulder - Aspirate 03/14/16 14:45 Gram Stain - Final Shoulder - Aspirate 03/14/16 09:50 Gram Stain - Final Shoulder - Aspirate Laboratory Results 03/16/16 05:10 03/14/16 05:09 03/15/16 03/16/16 03/17/16 05:59 05:59 05:59 Intake Total 1000 1307 Output Total 361 1035 Balance 639 272 - Physical Exam General Appearance: alert, no apparent distress Respiratory: lungs clear Cardiac/Chest: regular rate, rhythm, systolic murmur Extremities: swelling, other (left shoulder with post op dressing) Abdomen: normal bowel sounds, non-tender, soft, No distended Skin: other (wounds dressed) ICD10 Worksheet Patient Problems: Problems Problem Status Diagnosed Bacteremia Acute Hypoxia Acute Sepsis Acute Sepsis affecting skin Acute Urinary tract infection Acute Wound infection Acute Wounds and injuries Acute Bilateral leg ulcer Acute
[2016-03-16] MEDS: ENOXAPARIN 40 MG/0.4 ML SYR SC SCH (12:34)
--- NOTE | 2016-03-16 13:53 | IR ---
Imaging Guided Peripherally Inserted Central Catheter History: Bacteremia. Technique: Following informed consent, the right arm was prepped and draped in sterile fashion. All e lements of maximal sterile barrier technique including cap, mask, sterile gown, sterile gloves, large sterile sheet, hand hygiene, and 2% chlorhexidine for cutaneous antisepsis, followed. Ultrasound tra nsducer was placed in sterile sleeve and sterile coupling gel was used. Ultrasound evaluation of pote ntial access sites was performed. After successfully identifying a patent vessel of adequate size, 1% Xylocaine was used for local anesthetic. Ultrasound guidance was used to puncture the basilic vein with a 21-gauge needle. 0.018 measuring wire was passed centrally under fluoroscopic control. A skin selina with scalpel blade was followed by removing the access needle. A 4.5 Bhutanese peel-away sheath w as followed by a 4 Bhutanese single-lumen central catheter , trimmed to 39 cm length. The tip of the ca theter was positioned centrally and the guidewire removed. AP fluoroscopic spot image was obtained in inspiration. The catheter irrigated easily. The hub of the catheter was secured to the skin using a StatLock adhesive device, and a sterile dressing was applied. Fluoroscopy time in minutes: 0.2 . Estimated exposure in mGy: 4.2 . Findings: The tip of the central catheter terminates at the junction of the superior vena cava and th e right atrium. Right hemidiaphragm is severely elevated, similar to multiple previous examinations. Scoliosis is unchanged. Impression: 4 Bhutanese single lumen peripherally inserted central catheter is ready to use. - - - - - - - - - - - - - - - - - - - - - - - - - - - - - - - - - - - - - - - - - (Cross-cutting measures: Current medications were listed in the medical record, including all known prescriptions, [id number] medications, herbal medications, and nutritional supplements. The pat ient does not smoke. )
--- NOTE | 2016-03-16 15:09 | SOAPPROG ---
SOAP Progress Note Assessment/Plan: Assessment POD 2. Drain was found out of shoulder this AM. Otherwise, stable and feeling better. Plan: Gentle activity with L shoulder. WBAT. fu in my clinic in 2 weeks. showers OK. 03/16/16 15:07 Subjective: POD 2. Path consistent with pseudogout. CPPD crystals. Likely seeded infection in a baseline CPPD shoulder Objective: Vital Signs Temp Pulse Resp BP Pulse Ox 36.5 C 101 H 18 122/70 H 94 03/16/16 07:42 03/16/16 11:23 03/16/16 11:23 03/16/16 11:23 03/16/16 11:23 Microbiology 03/14/16 14:45 Gram Stain - Final Shoulder - Aspirate 03/14/16 09:50 Gram Stain - Final Shoulder - Aspirate 03/14/16 14:45 Mycobacterial Smear (BOB) - Final Shoulder - Aspirate Laboratory Results 03/16/16 05:10 03/14/16 05:09 03/15/16 03/16/16 03/17/16 05:59 05:59 05:59 Intake Total 1000 1307 Output Total 361 1035 Balance 639 272 PT 19.8 SEC (12.0-15.0) H 03/12/16 Unknown INR 1.68 (0.83-1.16) H 03/12/16 Unknown PROM to 45 abd without pain. 30/30 rotation at side without pain. AROM with pain. drain hole healthy. portal sites with suture healthy. No cellulitis. ICD10 Worksheet Patient Problems: Problems Problem Status Diagnosed Bacteremia Acute Hypoxia Acute Sepsis Acute Sepsis affecting skin Acute Urinary tract infection Acute Wound infection Acute Wounds and injuries Acute Bilateral leg ulcer Acute
[2016-03-16] MEDS ORDERED: OXYCODONE/APAP 5/325 TAB PO PRN (17:09)
--- NOTE | 2016-03-16 17:32 | HOSPPROG ---
[id number] new to my care today presenting with # sepsis secondary to LLE cellulitis with b/l LE wound infections and septic joint - 1/2 BCx's growing GAS, for 2nd time. Rpt BCx's NGTD. Per ID, atbx tailored to Ceftriaxone. Cont wound care. -PICC today -will need SNF for ongoing atbx therapy, DOT 4 weeks per ID # septic left shoulder joint - S/P washout in OR by Dr. Sow. GPC's on gram stain. Cx pending. # depression # hypotension # history of neurogenic bladder # suspected neurogenic excoriation # DVT pplx - Lovenox # Full code # Dispo - cont inpt Subjective: Pt denies pain. She is disappointed abt need for SNF. No fevers. Appetite good. Objective: Vital Signs Temp Pulse Resp BP Pulse Ox 36.6 C 91 16 130/82 H 94 03/16/16 16:00 03/16/16 16:00 03/16/16 16:00 03/16/16 16:00 03/16/16 16:00 Microbiology 03/14/16 14:45 Gram Stain - Final Shoulder - Aspirate 03/14/16 09:50 Gram Stain - Final Shoulder - Aspirate 03/14/16 14:45 Mycobacterial Smear (BOB) - Final Shoulder - Aspirate Laboratory Results 03/16/16 05:10 03/14/16 05:09 03/15/16 03/16/16 03/17/16 05:59 05:59 05:59 Intake Total 1000 1307 Output Total 361 1035 Balance 639 272 PT 19.8 SEC (12.0-15.0) H 03/12/16 Unknown INR 1.68 (0.83-1.16) H 03/12/16 Unknown - Physical Exam Constitutional: no apparent distress Eyes: PERRL Ears, Nose, Mouth, Throat: moist mucous membranes Cardiovascular: regular rate and rhythym Respiratory: no respiratory distress, clear to auscultation Gastrointestinal: normoactive bowel sounds, soft, non-tender abdomen Skin: warm (LUE shoulder dressing c/d/i. LE's with persistent edema, decreased erythema of LLE) ICD10 Worksheet Patient Problems: Problems Problem Status Diagnosed Bacteremia Acute Hypoxia Acute Sepsis Acute Sepsis affecting skin Acute Urinary tract infection Acute Wound infection Acute Wounds and injuries Acute Bilateral leg ulcer Acute
[2016-03-16] MEDS: IBUPROFEN 600 MG TAB PO PRN (18:14)
[2016-03-17] MEDS: traMADol 50 MG TAB PO PRN ×3 (00:34→12:14)
[2016-03-17] MEDS: IBUPROFEN 600 MG TAB PO PRN ×3 (03:06→17:14)
[2016-03-17] MEDS: hydrOXYzine HCL 25 MG TAB PO PRN ×3 (05:49→13:16)
[2016-03-17 08:35] VITALS: RESP 18
[2016-03-17] MEDS: ACETAMINOPHEN 325 MG TAB PO PRN ×2 (08:45→15:58)
[2016-03-17] MEDS: cefTRIAXone 2 GM in D5W 50 ML IV SCH (08:49)
[2016-03-17] MEDS: SENNOSIDES/DOCUSATE SODIUM TAB PO SCH (08:49)
[2016-03-17] MEDS: FLUoxetine 20 MG CAP PO SCH (08:49)
[2016-03-17] MEDS: FERROUS SULFATE 325 MG TAB PO SCH (08:49)
[2016-03-17] MEDS: ENOXAPARIN 40 MG/0.4 ML SYR SC SCH (08:49)
--- NOTE | 2016-03-17 11:24 | PCMIDPN ---
Assessment/Plan: Assessment/Plan: * Recurrent group A strep bacteremia and left shoulder septic bursitis/possible arthritis status post incision and drainage: Continued clinical improvement post incision and drainage and with antibiotic therapy. Persistent shoulder pain which is less prominent than previously which may have component related to pseudogout. Plan 4 weeks of ceftriaxone therapy. Plan weekly CBC, CMP and C -reactive protein on antibiotic therapy. Will need continued care in SNF. 03/17/16 11:20 Subjective: Patient with persistent left shoulder pain although notes this is significantly less than prior to incision and drainage. Objective: Vital Signs Temp Pulse Resp BP Pulse Ox 37.0 C 105 H 18 130/94 H 94 03/17/16 08:00 03/17/16 08:00 03/17/16 08:00 03/17/16 08:00 03/17/16 08:00 Microbiology 03/14/16 09:50 Gram Stain - Final Shoulder - Aspirate 03/14/16 14:45 Gram Stain - Final Shoulder - Aspirate 03/14/16 14:45 Mycobacterial Smear (BOB) - Final Shoulder - Aspirate Laboratory Results 03/16/16 05:10 03/14/16 05:09 03/16/16 03/17/16 03/18/16 05:59 05:59 05:59 Intake Total 1307 450 Output Total 1035 1675 600 Balance 599 -9957 -950 Ceftriaxone # 3 (antibiotics # 5) Shoulder culture with 1+ GPC on Gram stain and culture negative to date; CPPD crystals present Blood cultures 03/14/2016 no growth - Physical Exam General Appearance: alert, no apparent distress EENT: pharynx normal, No scleral icterus Respiratory: lungs clear, No respiratory distress Cardiac/Chest: regular rate, rhythm Extremities: inflammation (Range of motion of left shoulder limited; no cellulitis over lower extremities) Abdomen: non-tender, No distended ICD10 Worksheet Patient Problems: Problems Problem Status Diagnosed Bacteremia Acute Hypoxia Acute Sepsis Acute Sepsis affecting skin Acute Urinary tract infection Acute Wound infection Acute Wounds and injuries Acute Bilateral leg ulcer Acute
--- NOTE | 2016-03-17 11:30 | PDIAF ---
- Diagnosis Diagnosis: Group a strep bacteremia, left shoulder septic arthritis Code Status: Full Code - Medication Management Discharge Medications: Medications to Continue on Transfer FLUoxetine [Prozac 20 MG (*)] 60 mg PO DAILY 10/06/11 [Last Taken 03/11/16] Acetaminophen 1,000 mg PO BID PRN 08/17/12 [Last Taken 03/12/16 1000 MG] hydrOXYzine HCL [Vistaril 10MG (RX)] 10 mg PO QID PRN 08/04/14 [Last Taken 03/11] Shelter Antibiotics: Ceftriaxone 2 g IV daily Shelter Antibiotic Stop Date: 04/11/16 Discharge Medications: Refer to the Discharge Home Medication list for PRN reason. PICC Care - Routine: Yes - Labs/Radiology CBC Date: 03/21/16 (Weekly, Q Tuesday) CMP Date: 03/21/16 (Weekly, Q Tuesday) CRP Date: 03/21/16 (Weekly, Q Tuesday) Call or Fax Lab and Imaging Results to: Dr. Mcgovern, - Follow Up Care Current Providers and Referrals: [place] STATE,. [Primary Care Provider] - Carlito Mcgovern MD [Medical Doctor] - 03/31/16 1:30 pm
[2016-03-17 12:44] VITALS: BP 128/96; PULSE 102; TEMP 98.2; O2SAT 95
--- NOTE | 2016-03-17 13:24 | PDIAF ---
- Diagnosis Diagnosis: Group a strep bacteremia, left shoulder septic arthritis Code Status: Full Code - Medication Management Discharge Medications: Medications to Continue on Transfer FLUoxetine [Prozac 20 MG (*)] 60 mg PO DAILY 10/06/11 [Last Taken 03/11/16] hydrOXYzine HCL [Vistaril 10MG (RX)] 10 mg PO QID PRN 08/04/14 [Last Taken 03/11] Acetaminophen [Tylenol 325mg (*)] 650 mg PO Q4HRS PRN #90 tab 03/17/16 [Last Taken Unknown] Ferrous Sulfate [Ferrous Sulf 325 MG (*)] 325 mg PO DAILY #0 tab 03/17/16 [Last Taken Unknown] Ibuprofen [Motrin (*)] 600 mg PO Q8H PRN #90 tab 03/17/16 [Last Taken Unknown] Ondansetron Odt [Zofran Odt 4 mg (*)] 4 mg PO Q4HRS PRN #30 tab 03/17/16 [Last Taken Unknown] Polyethylene Glycol 3350 [Miralax 17 gm (*)] 17 gm PO DAILY PRN #30 pkt [Last Taken Unknown] Sennosides/Docusate Sodium [Senokot-S] 1 - 2 tab PO BID #60 tab 03/17/16 [Last Taken Unknown] traMADol [Ultram 50 mg (*)] 25 - 50 mg PO Q6HRS PRN #60 tab 03/17/16 [Last Taken Unknown] Group Home Antibiotics: Ceftriaxone 2 g IV daily [employer] Antibiotic Stop Date: 04/11/16 Discharge Medications: Refer to the Discharge Home Medication list for PRN reason. PICC Care - Routine: Yes - Orders Services needed: Registered Nurse, Certified Customer Service Advocate, Physical Therapy, Occupational Therapy Diet Recommendation: no restrictions on diet Nieto: No Wound Care Instructions: Follow up at outpatient wound healing center within one week for wound management. Patient instructed to call for appointment on Wednesday 03/15. [phone] Activity/Weight Bearing Restrictions: As tolerated, T12 paraplegia Additional: Straight cath q6h prn for neurogenic bladder - Labs/Radiology CBC Date: 03/21/16 (Weekly, Q Tuesday) CMP Date: 03/21/16 (Weekly, Q Tuesday) CRP Date: 03/21/16 (Weekly, Q Tuesday) Call or Fax Lab and Imaging Results to: Dr. Mcgovern, - Follow Up Care Current Providers and Referrals: [place] STATE,. [Primary Care Provider] - Carlito Mcgovern MD [Medical Doctor] - 03/31/16 1:30 pm
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
== END 2016-03-17 18:10 | DRG 854 ==
LOC: EDUNIT# → F2N 09:29 → F3E 03-13 12:22
PROVIDERS: ADMIT Internal Medicine; ATTEND Hospitalist
DX: A40.0 Sepsis due to streptococcus, group A (principal); M00.212 Other streptococcal arthritis, left shoulder; L03.116 Cellulitis of left lower limb; L97.219 Non-pressure chronic ulcer of right calf with unspecified severity; L97.229 Non-pressure chronic ulcer of left calf with unspecified severity; I25.10 Atherosclerotic heart disease of native coronary artery without angina pectoris; G82.20 Paraplegia, unspecified; S24.104S Unspecified injury at T11-T12 level of thoracic spinal cord, sequela; I87.2 Venous insufficiency (chronic) (peripheral); N31.9 Neuromuscular dysfunction of bladder, unspecified; I89.0 Lymphedema, not elsewhere classified; Z95.5 Presence of coronary angioplasty implant and graft; F32.9 Major depressive disorder, single episode, unspecified; F63.89 Other impulse disorders; I10 Essential (primary) hypertension
CPT/HCPCS: 80305; 96374; 97162-GP; 97166-GO; 97530-GO; 97530-GP; 97535-GO; C1751; C1769; G8978-GP-CK; G8979-GP-CJ; G8987-GO-CM; G8988-GO-CJ; G8988-GO-CK; G8989-GO-CL; J0696; J1100; J1335; J1650; J1885; J2001; J2250; J2370; J2405; J2543; J2704; J2795; J3010; J3370